=== PATIENT | female | born 1980 | race Caucasian/White ===

== ENCOUNTER → 2018-09-21 | Outpatient (CLI) | payer OTHER ==
[~2018-09-21] MED LIST: ACYC200 PO; IBUP600 PO; LEVSOD125; PROM25 PO; Robaxin500 MG PO
== END | disposition home or self-care (01) ==
LOC: LAB 18:02 → LAB SHORT 18:02 → LAB FUT 09-22 17:50
PROVIDERS: Nurse Practitioner Family
DX: Z12.4 Encounter for screening for malignant neoplasm of cervix (principal); Z11.51 Encounter for screening for human papillomavirus (HPV)
CPT/HCPCS: G0145